=== PATIENT | male | born 1995 | race African-American/Black ===

== ENCOUNTER 2020-11-10 00:59 | Emergency (ER) | payer SELFPAY ==
[~2020-11-10] VITALS: Ht 172.7 cm; Wt 56.7 kg
--- NOTE | 2020-11-10 01:00 | NUR ---
PT BIBSELF C/O R SIDE CHEST AND LUNG PAIN. PT AAOX4. AMBULATORY WITH STEADY GAIT. VITAL SIGNS STABLE. NO ACUTE DISTRESS NOTED AT THIS TIME.
[2020-11-10] MEDS ORDERED: TRAM50TA2 PO (01:42)
[2020-11-10] MEDS ORDERED: KETOROLAC TROMETHAMINE INJ 60 MG/2 ML VIAL IM ONE ×2 (01:44→02:00)
[2020-11-10 01:51] VITALS: BP 110/74
--- NOTE | 2020-11-10 01:51 | NUR ---
Patient discharged to home in stable condition. Written and verbal after care instructions given. Patient verbalizes understanding of instruction.Pt ambulatory with a steady gait
== END 2020-11-10 01:52 | disposition home or self-care (01) ==
LOC: ER 00:59
DX: R07.89 Other chest pain (principal); Z79.899 Other long term (current) drug therapy
CPT/HCPCS: 71045; 93005; 96372; 99283; J1885